=== PATIENT | male | born 1960 | race Caucasian/White ===

== ENCOUNTER 2018-03-27 16:37 | Emergency (ER) | payer MEDICARE, OTHER ==
[2018-03-27] MEDS: IBUPROFEN 800 MG TAB PO (17:58)
[2018-03-27] MEDS: DIPHTH/TET/ACEL PERTUSS (ADULT) 0.5 ML VIAL IM (17:59)
[2018-03-27] MEDS: LIDOCAINE 2%/EPI MPF (SDV) 20 ML VIAL INJ (18:26)
[2018-03-27] MEDS: STERILE WATER 1L IRRIG BTL IRR (18:27)
== END 2018-03-27 19:41 | disposition home or self-care (01) ==
LOC: FTE 16:37
DX: S01.112A Laceration without foreign body of left eyelid and periocular area, initial encounter (principal); I10 Essential (primary) hypertension; I50.9 Heart failure, unspecified; W23.0XXA Caught, crushed, jammed, or pinched between moving objects, initial encounter; Y92.9 Unspecified place or not applicable; Z23 Encounter for immunization; Z95.0 Presence of cardiac pacemaker; Z95.1 Presence of aortocoronary bypass graft
CPT/HCPCS: 12011; 70450; 90471; 90715; 99284-25

== ENCOUNTER 2018-04-05 08:55 | Emergency (ER) | payer MEDICARE, OTHER | END 2018-04-05 09:55 | disposition home or self-care (01) | LOC: FTE 08:55 | DX: Z48.02 Encounter for removal of sutures (principal); I10 Essential (primary) hypertension; I50.9 Heart failure, unspecified; Z79.01 Long term (current) use of anticoagulants; Z95.0 Presence of cardiac pacemaker; Z95.1 Presence of aortocoronary bypass graft ==

== ENCOUNTER → 2018-04-14 | Outpatient (CLI) | payer MEDICARE, OTHER ==
[~2018-04-14] MED LIST: BARIUM SULF 2% 450 ML BTL (BERRY SMOOTHIE) PO
== END | disposition home or self-care (01) ==
LOC: C/S 07:43
DX: R14.0 Abdominal distension (gaseous) (principal)
CPT/HCPCS: 74176

== ENCOUNTER 2018-08-30 19:57 | Inpatient (IN) | payer MEDICARE, OTHER ==
[2018-08-30] MEDS: ONDANSETRON 4 MG INJ IV (21:30)
[2018-08-30] MEDS: ASPIRIN 325 MG TAB PO (21:30)
[2018-08-30] MEDS: morphine 4 MG/ML VIAL IV (21:31)
[2018-08-30 21:46] LABS: ADD MAN DIFF? NO
[2018-08-30 21:48] LABS: WHITE BLOOD COUNT 6.9 10^3/ul (4.8-10.8)
[2018-08-30 21:48] LABS: BASOPHIL # 0.1 10^3/ul (0.0-0.1); BASOPHILS % 0.9 % (0.0-2.0); EOSINOPHILS # 0.2 10^3/ul (0.0-0.5); EOSINOPHILS % 2.9 % (0.0-7.0); HEMATOCRIT 42.6 % (42.0-52.0); HEMOGLOBIN 14.2 g/dl (14.0-18.0); LYMPHOCYTES # 1.6 10^3/ul (0.8-2.9); LYMPHOCYTES % 22.7 % (15.0-51.0); MEAN CORPUSCULAR HEMOGLOBIN 31.3 pg (29.0-33.0); MEAN CORPUSCULAR HGB CONC 33.3 g/dl (32.0-37.0); MEAN PLATELET VOLUME 9.8 fl (7.4-10.4); MONOCYTE # 0.6 10^3/ul (0.3-0.9); MONOCYTES % 8.5 % (0.0-11.0); NEUTROPHIL # 4.4 10^3/ul (1.6-7.5); PLATELET COUNT 185 10^3/UL (140-415); RED BLOOD COUNT 4.53 10^6/ul (4.70-6.10); RED CELL DISTRIBUTION WIDTH 13.8 % (11.5-14.5)
[2018-08-30 22:04] LABS: INR 2.19; PROTIME 24.9 Sec (11.9-14.9); PT RATIO 1.9
[2018-08-30 22:05] LABS: PARTIAL THROMBOPLASTIN TIME 39.8 Sec (23.0-35.0)
[2018-08-30 22:06] LABS: ALANINE AMINOTRANSFERASE 15 IU/L (13-69); ALBUMIN 4.4 g/dl (3.3-4.9); ALBUMIN/GLOBULIN RATIO 1.22; ALKALINE PHOSPHATASE 87 IU/L (42-121); ANION GAP 11 (5-13); ASPARTATE AMINO TRANSFERASE 29 IU/L (15-46); BILIRUBIN,INDIRECT 0.5 mg/dl (0-1.1); BILIRUBIN,TOTAL 0.5 mg/dl (0.2-1.3); BLOOD UREA NITROGEN 18 mg/dl (7-20); CALCIUM 8.8 mg/dl (8.4-10.2); CARBON DIOXIDE 23 mmol/L (21-31); CHLORIDE 108 mmol/L (97-110); CREATINE KINASE 68 IU/L (23-200); CREATININE 0.75 mg/dl (0.61-1.24); Estimated GFR > 60 mL/min (>60); GLUCOSE 104 mg/dl (70-220); POTASSIUM 4.3 mmol/L (3.5-5.1); SODIUM 142 mmol/L (135-144)
[2018-08-30 22:18] LABS: B-TYPE NATRIURETIC PEPTIDE 454 PG/ML (0-125); CK INDEX 0.8; CK-MB 0.56 ng/ml (0.0-2.4); TROPONIN-I 0.021 ng/ml (0.000-0.120)
[2018-08-30] MEDS ORDERED: ACETAMINOPHEN 325 MG TAB PO (23:00)
[2018-08-30] MEDS ORDERED: ONDANSETRON 4 MG INJ IV (23:00)
[2018-08-31] MEDS ORDERED: ONDANSETRON 4 MG INJ IV (01:30)
[2018-08-31 04:01] LABS: ADD MAN DIFF? NO
[2018-08-31 04:03] LABS: BASOPHILS % 0.7 % (0.0-2.0); EOSINOPHILS # 0.2 10^3/ul (0.0-0.5); EOSINOPHILS % 3.8 % (0.0-7.0); HEMATOCRIT 41.2 % (42.0-52.0); HEMOGLOBIN 13.5 g/dl (14.0-18.0); LYMPHOCYTES # 1.8 10^3/ul (0.8-2.9); LYMPHOCYTES % 29.3 % (15.0-51.0); MEAN CORPUSCULAR HEMOGLOBIN 31.2 pg (29.0-33.0); MEAN CORPUSCULAR HGB CONC 32.8 g/dl (32.0-37.0); MEAN CORPUSCULAR VOLUME 95.2 fl (82.0-101.0); MEAN PLATELET VOLUME 9.6 fl (7.4-10.4); MONOCYTE # 0.6 10^3/ul (0.3-0.9); NEUTROPHIL # 3.3 10^3/ul (1.6-7.5); PLATELET COUNT 164 10^3/UL (140-415); RED BLOOD COUNT 4.33 10^6/ul (4.70-6.10); RED CELL DISTRIBUTION WIDTH 13.8 % (11.5-14.5)
[2018-08-31 04:20] LABS: ANION GAP 8 (5-13); BLOOD UREA NITROGEN 18 mg/dl (7-20); CALCIUM 8.6 mg/dl (8.4-10.2); CARBON DIOXIDE 29 mmol/L (21-31); CHLORIDE 106 mmol/L (97-110); CHOLESTEROL 233 mg/dl (100-200); CREATININE 0.87 mg/dl (0.61-1.24); Estimated GFR > 60 mL/min (>60); GLUCOSE 89 mg/dl (70-220); HDL CHOLESTEROL 29 mg/dl (28-71); LDL CHOLESTEROL,CALCULATED 166 mg/dl; POTASSIUM 4.8 mmol/L (3.5-5.1); SODIUM 143 mmol/L (135-144); TRIGLYCERIDES 190 mg/dl (0-149)
[2018-08-31 04:32] LABS: TROPONIN-I 0.021 ng/ml (0.000-0.120)
[2018-08-31 11:18] LABS: TROPONIN-I 0.016 ng/ml (0.000-0.120)
[2018-08-31] MEDS ORDERED: ZOLPIDEM 5 MG TAB PO (13:00)
[2018-08-31] MEDS ORDERED: MECLIZINE 25 MG TAB PO (13:00)
[2018-08-31] MEDS ORDERED: WARFARIN 3 MG TAB PO (13:00)
[2018-08-31] MEDS: FUROSEMIDE 40 MG INJ IV (14:40)
[2018-08-31 16:24] LABS: TROPONIN-I 0.015 ng/ml (0.000-0.120)
[2018-08-31] MEDS: WARFARIN 2 MG TAB PO (17:18)
[2018-08-31] MEDS: FUROSEMIDE 20 MG INJ IV (17:20)
[2018-08-31] MEDS: LEVALBUTEROL (NEB) 0.63 MG/3 ML AMP HHN (17:25)
[2018-08-31] MEDS: SACUBITRIL/VALSARTAN (24mg-26mg) TABLET PO (21:17)
[2018-08-31] MEDS: GUAIFENESIN/DM (SR) TAB PO (21:18)
[2018-08-31] MEDS: ATORVASTATIN 40 MG TAB PO (21:18)
[2018-08-31] MEDS: ZOLPIDEM 5 MG TAB PO (21:18)
[2018-08-31] MEDS: MONTELUKAST 10 MG TAB PO (21:18)
[2018-09-01] MEDS: FUROSEMIDE 20 MG INJ IV (06:57)
[2018-09-01 07:12] LABS: INR 2.02; PROTIME 23.3 Sec (11.9-14.9); PT RATIO 1.8
[2018-09-01] MEDS: GUAIFENESIN/DM (SR) TAB PO ×2 (08:14→20:27)
[2018-09-01] MEDS: SACUBITRIL/VALSARTAN (24mg-26mg) TABLET PO (08:14)
[2018-09-01] MEDS: SPIRONOLACTONE 25 MG TAB PO (08:15)
[2018-09-01] MEDS: LEVALBUTEROL (NEB) 0.63 MG/3 ML AMP HHN ×3 (08:17→16:34)
[2018-09-01] MEDS ORDERED: AMIODARONE 200 MG TAB PO (09:00)
[2018-09-01] MEDS ORDERED: WARFARIN 1 MG TAB PO (09:00)
[2018-09-01] MEDS ORDERED: ALPRAZOLAM 1 MG TAB PO (11:00)
[2018-09-01] MEDS: ALPRAZOLAM 1 MG TAB PO (13:02)
[2018-09-01] MEDS: FUROSEMIDE 40 MG INJ IV (14:24)
[2018-09-01] MEDS: WARFARIN 3 MG TAB PO (14:24)
[2018-09-01] MEDS: MONTELUKAST 10 MG TAB PO (20:27)
[2018-09-01] MEDS: ATORVASTATIN 40 MG TAB PO (20:27)
[2018-09-01] MEDS: SACUBITRIL/VALSARTAN (49mg-51mg) TABLET PO (20:27)
[2018-09-01] MEDS: ZOLPIDEM 5 MG TAB PO (20:27)
[2018-09-01] MEDS: morphine 2 MG INJ IV (20:38)
[2018-09-02] MEDS: GUAIFENESIN/DM (SR) TAB PO ×2 (08:23→20:28)
[2018-09-02] MEDS: SPIRONOLACTONE 25 MG TAB PO (08:24)
[2018-09-02] MEDS: SACUBITRIL/VALSARTAN (49mg-51mg) TABLET PO ×2 (08:24→20:28)
[2018-09-02] MEDS: FUROSEMIDE 20 MG INJ IV ×2 (08:25→17:31)
[2018-09-02 08:42] LABS: ADD MAN DIFF? NO
[2018-09-02 08:48] LABS: WHITE BLOOD COUNT 7.3 10^3/ul (4.8-10.8)
[2018-09-02 08:48] LABS: BASOPHIL # 0.1 10^3/ul (0.0-0.1); BASOPHILS % 0.7 % (0.0-2.0); EOSINOPHILS # 0.2 10^3/ul (0.0-0.5); EOSINOPHILS % 2.5 % (0.0-7.0); HEMATOCRIT 44.2 % (42.0-52.0); HEMOGLOBIN 14.9 g/dl (14.0-18.0); LYMPHOCYTES # 1.3 10^3/ul (0.8-2.9); LYMPHOCYTES % 18.3 % (15.0-51.0); MEAN CORPUSCULAR HEMOGLOBIN 31.2 pg (29.0-33.0); MEAN CORPUSCULAR HGB CONC 33.7 g/dl (32.0-37.0); MEAN CORPUSCULAR VOLUME 92.5 fl (82.0-101.0); MEAN PLATELET VOLUME 10.5 fl (7.4-10.4); MONOCYTE # 0.6 10^3/ul (0.3-0.9); MONOCYTES % 7.7 % (0.0-11.0); NEUTROPHIL # 5.1 10^3/ul (1.6-7.5); NEUTROPHILS % 69.6 % (39.0-77.0); PLATELET COUNT 206 10^3/UL (140-415); RED BLOOD COUNT 4.78 10^6/ul (4.70-6.10); RED CELL DISTRIBUTION WIDTH 13.7 % (11.5-14.5)
[2018-09-02] MEDS: LEVALBUTEROL (NEB) 0.63 MG/3 ML AMP HHN ×3 (08:51→17:25)
[2018-09-02 09:16] LABS: MAGNESIUM 2.2 mg/dl (1.7-2.5)
[2018-09-02 09:26] LABS: ANION GAP 13 (5-13); BLOOD UREA NITROGEN 27 mg/dl (7-20); CARBON DIOXIDE 27 mmol/L (21-31); CHLORIDE 100 mmol/L (97-110); CREATININE 0.74 mg/dl (0.61-1.24); Estimated GFR > 60 mL/min (>60); GLUCOSE 83 mg/dl (70-220); SODIUM 140 mmol/L (135-144)
[2018-09-02] MEDS: morphine 2 MG INJ IV (13:00)
[2018-09-02] MEDS: WARFARIN 5 MG TAB PO (17:30)
[2018-09-02] MEDS: MONTELUKAST 10 MG TAB PO (20:28)
[2018-09-02] MEDS: ATORVASTATIN 40 MG TAB PO (20:28)
[2018-09-02] MEDS: ZOLPIDEM 5 MG TAB PO (20:29)
[2018-09-03] MEDS: FUROSEMIDE 20 MG INJ IV (05:52)
[2018-09-03 07:35] LABS: PROTIME 26.8 Sec (11.9-14.9); PT RATIO 2.1
[2018-09-03 07:42] LABS: ANION GAP 11 (5-13); BLOOD UREA NITROGEN 26 mg/dl (7-20); CALCIUM 9.1 mg/dl (8.4-10.2); CARBON DIOXIDE 27 mmol/L (21-31); CHLORIDE 99 mmol/L (97-110); CREATININE 0.77 mg/dl (0.61-1.24); Estimated GFR > 60 mL/min (>60); GLUCOSE 97 mg/dl (70-220); MAGNESIUM 2.2 mg/dl (1.7-2.5); POTASSIUM 3.9 mmol/L (3.5-5.1); SODIUM 137 mmol/L (135-144)
[2018-09-03] MEDS: LEVALBUTEROL (NEB) 0.63 MG/3 ML AMP HHN ×3 (08:13→16:47)
[2018-09-03] MEDS: GUAIFENESIN/DM (SR) TAB PO ×2 (08:44→21:43)
[2018-09-03] MEDS: SACUBITRIL/VALSARTAN (49mg-51mg) TABLET PO ×2 (08:44→21:44)
[2018-09-03] MEDS: SPIRONOLACTONE 25 MG TAB PO (08:44)
[2018-09-03] MEDS: FUROSEMIDE 40 MG TAB PO (10:58)
[2018-09-03] MEDS: ALPRAZOLAM 1 MG TAB PO (11:04)
[2018-09-03] MEDS: WARFARIN 5 MG TAB PO (17:38)
[2018-09-03] MEDS: MONTELUKAST 10 MG TAB PO (21:43)
[2018-09-03] MEDS: ATORVASTATIN 40 MG TAB PO (21:43)
[2018-09-03] MEDS: ZOLPIDEM 5 MG TAB PO (21:49)
[2018-09-04 06:34] LABS: INR 2.58; PROTIME 28.4 Sec (11.9-14.9); PT RATIO 2.2
[2018-09-04] MEDS: LEVALBUTEROL (NEB) 0.63 MG/3 ML AMP HHN ×3 (08:40→16:13)
[2018-09-04] MEDS: SPIRONOLACTONE 25 MG TAB PO (09:21)
[2018-09-04] MEDS: SACUBITRIL/VALSARTAN (49mg-51mg) TABLET PO ×2 (09:21→22:07)
[2018-09-04] MEDS: GUAIFENESIN/DM (SR) TAB PO ×2 (09:21→22:07)
[2018-09-04] MEDS: FUROSEMIDE 40 MG TAB PO (09:22)
[2018-09-04] MEDS ORDERED: SPIRONOLACTONE 25 MG TAB PO (15:00)
[2018-09-04] MEDS: WARFARIN 5 MG TAB PO (19:10)
[2018-09-04] MEDS: ALPRAZOLAM 1 MG TAB PO (19:13)
[2018-09-04] MEDS: ATORVASTATIN 40 MG TAB PO (22:07)
[2018-09-04] MEDS: ZOLPIDEM 5 MG TAB PO (22:07)
[2018-09-04] MEDS: MONTELUKAST 10 MG TAB PO (22:07)
[2018-09-05 06:06] LABS: ADD MAN DIFF? NO
[2018-09-05 06:14] LABS: BASOPHIL # 0.1 10^3/ul (0.0-0.1); BASOPHILS % 0.8 % (0.0-2.0); EOSINOPHILS # 0.2 10^3/ul (0.0-0.5); EOSINOPHILS % 2.7 % (0.0-7.0); HEMATOCRIT 43.1 % (42.0-52.0); HEMOGLOBIN 14.6 g/dl (14.0-18.0); LYMPHOCYTES # 1.6 10^3/ul (0.8-2.9); LYMPHOCYTES % 22.2 % (15.0-51.0); MEAN CORPUSCULAR HEMOGLOBIN 31.6 pg (29.0-33.0); MEAN CORPUSCULAR HGB CONC 33.9 g/dl (32.0-37.0); MEAN CORPUSCULAR VOLUME 93.3 fl (82.0-101.0); MEAN PLATELET VOLUME 10.1 fl (7.4-10.4); MONOCYTE # 0.6 10^3/ul (0.3-0.9); MONOCYTES % 7.9 % (0.0-11.0); NEUTROPHIL # 4.7 10^3/ul (1.6-7.5); NEUTROPHILS % 64.9 % (39.0-77.0); PLATELET COUNT 185 10^3/UL (140-415); RED BLOOD COUNT 4.62 10^6/ul (4.70-6.10); RED CELL DISTRIBUTION WIDTH 13.6 % (11.5-14.5)
[2018-09-05 06:14] LABS: WHITE BLOOD COUNT 7.3 10^3/ul (4.8-10.8)
[2018-09-05 06:51] LABS: INR 2.57; PROTIME 28.3 Sec (11.9-14.9); PT RATIO 2.2
[2018-09-05 06:58] LABS: ANION GAP 9 (5-13); BLOOD UREA NITROGEN 19 mg/dl (7-20); CALCIUM 8.8 mg/dl (8.4-10.2); CARBON DIOXIDE 29 mmol/L (21-31); CHLORIDE 102 mmol/L (97-110); CREATININE 0.83 mg/dl (0.61-1.24); Estimated GFR > 60 mL/min (>60); GLUCOSE 86 mg/dl (70-220); POTASSIUM 3.8 mmol/L (3.5-5.1); SODIUM 140 mmol/L (135-144)
[2018-09-05] MEDS: FUROSEMIDE 40 MG TAB PO (08:32)
[2018-09-05] MEDS: SPIRONOLACTONE 25 MG TAB PO (08:32)
[2018-09-05] MEDS: GUAIFENESIN/DM (SR) TAB PO ×2 (08:32→20:24)
[2018-09-05] MEDS: SACUBITRIL/VALSARTAN (49mg-51mg) TABLET PO ×2 (08:33→20:25)
[2018-09-05] MEDS: LEVALBUTEROL (NEB) 0.63 MG/3 ML AMP HHN ×3 (08:47→17:11)
[2018-09-05] MEDS: WARFARIN 5 MG TAB PO (16:33)
[2018-09-05] MEDS: FUROSEMIDE 20 MG INJ IV (16:33)
[2018-09-05] MEDS: ATORVASTATIN 40 MG TAB PO (20:24)
[2018-09-05] MEDS: MONTELUKAST 10 MG TAB PO (20:24)
[2018-09-05] MEDS: ZOLPIDEM 5 MG TAB PO (20:25)
[2018-09-06 07:02] LABS: INR 2.75; PROTIME 29.9 Sec (11.9-14.9); PT RATIO 2.3
[2018-09-06 07:17] LABS: ANION GAP 10 (5-13); BLOOD UREA NITROGEN 21 mg/dl (7-20); CALCIUM 8.8 mg/dl (8.4-10.2); CARBON DIOXIDE 27 mmol/L (21-31); CHLORIDE 104 mmol/L (97-110); CREATININE 0.71 mg/dl (0.61-1.24); Estimated GFR > 60 mL/min (>60); GLUCOSE 90 mg/dl (70-220); POTASSIUM 3.9 mmol/L (3.5-5.1); SODIUM 141 mmol/L (135-144)
[2018-09-06 07:40] LABS: MAGNESIUM 1.9 mg/dl (1.7-2.5)
[2018-09-06] MEDS: GUAIFENESIN/DM (SR) TAB PO (08:25)
[2018-09-06] MEDS: SPIRONOLACTONE 25 MG TAB PO (08:25)
[2018-09-06] MEDS: FUROSEMIDE 40 MG TAB PO (08:25)
[2018-09-06] MEDS: SACUBITRIL/VALSARTAN (49mg-51mg) TABLET PO (08:25)
[2018-09-06] MEDS: LEVALBUTEROL (NEB) 0.63 MG/3 ML AMP HHN ×3 (08:51→17:00)
[2018-09-06] MEDS: WARFARIN 5 MG TAB PO (16:55)
== END 2018-09-06 18:40 | disposition home or self-care (01) | DRG 293 ==
LOC: TEL 22:48 → E/R 19:57
DX: I11.0 Hypertensive heart disease with heart failure (principal); I42.9 Cardiomyopathy, unspecified; Z95.1 Presence of aortocoronary bypass graft; Z95.2 Presence of prosthetic heart valve; Z79.01 Long term (current) use of anticoagulants; I50.23 Acute on chronic systolic (congestive) heart failure; F41.9 Anxiety disorder, unspecified; I48.2 Chronic atrial fibrillation; I25.10 Atherosclerotic heart disease of native coronary artery without angina pectoris; R00.1 Bradycardia, unspecified; I25.2 Old myocardial infarction; Z95.0 Presence of cardiac pacemaker
CPT/HCPCS: 36415; 71045; 80048; 80053; 80061; 82550; 82553; 83735; 83880; 84484; 85025; 85610; 85730; 93005; 94640; 94664; 96374; 96375; 99285-25; G0378

== ENCOUNTER 2018-10-07 18:30 | Emergency (ER) | payer MEDICARE, OTHER ==
[2018-10-07 22:22] LABS: ADD MAN DIFF? NO
[2018-10-07 22:24] LABS: BASOPHILS % 0.6 % (0.0-2.0); EOSINOPHILS # 0.2 10^3/ul (0.0-0.5); EOSINOPHILS % 3.2 % (0.0-7.0); LYMPHOCYTES # 1.8 10^3/ul (0.8-2.9); LYMPHOCYTES % 24.9 % (15.0-51.0); MEAN CORPUSCULAR HEMOGLOBIN 31.1 pg (29.0-33.0); MEAN CORPUSCULAR HGB CONC 33.3 g/dl (32.0-37.0); MEAN CORPUSCULAR VOLUME 93.3 fl (82.0-101.0); MEAN PLATELET VOLUME 9.7 fl (7.4-10.4); MONOCYTE # 0.6 10^3/ul (0.3-0.9); MONOCYTES % 8.4 % (0.0-11.0); NEUTROPHIL # 4.5 10^3/ul (1.6-7.5); NEUTROPHILS % 61.9 % (39.0-77.0); PLATELET COUNT 192 10^3/UL (140-415); RED CELL DISTRIBUTION WIDTH 13.5 % (11.5-14.5)
[2018-10-07 22:24] LABS: WHITE BLOOD COUNT 7.2 10^3/ul (4.8-10.8)
[2018-10-07 22:43] LABS: ANION GAP 8 (5-13); BLOOD UREA NITROGEN 15 mg/dl (7-20); CALCIUM 9.4 mg/dl (8.4-10.2); CARBON DIOXIDE 26 mmol/L (21-31); CHLORIDE 106 mmol/L (97-110); Estimated GFR > 60 mL/min (>60); GLUCOSE 103 mg/dl (70-220); POTASSIUM 3.8 mmol/L (3.5-5.1); SODIUM 140 mmol/L (135-144)
[2018-10-07 22:54] LABS: TROPONIN-I 0.019 ng/ml (0.000-0.120)
== END 2018-10-08 00:57 | disposition home or self-care (01) ==
LOC: E/R 10-08 00:57
DX: J18.1 Lobar pneumonia, unspecified organism (principal); F41.9 Anxiety disorder, unspecified; I11.0 Hypertensive heart disease with heart failure; I50.9 Heart failure, unspecified; I25.2 Old myocardial infarction; Z95.0 Presence of cardiac pacemaker
CPT/HCPCS: 36415; 71045; 80048; 84484; 85025; 93005; 99285-25

== ENCOUNTER 2018-12-11 10:30 | Emergency (ER) | payer MEDICARE, OTHER ==
[2018-12-11 12:30] LABS: ADD MAN DIFF? NO
[2018-12-11 12:33] LABS: WHITE BLOOD COUNT 8.7 10^3/ul (4.8-10.8)
[2018-12-11 12:33] LABS: BASOPHILS % 0.3 % (0.0-2.0); EOSINOPHILS # 0.1 10^3/ul (0.0-0.5); EOSINOPHILS % 1.5 % (0.0-7.0); HEMATOCRIT 42.2 % (42.0-52.0); HEMOGLOBIN 13.9 g/dl (14.0-18.0); LYMPHOCYTES # 0.7 10^3/ul (0.8-2.9); LYMPHOCYTES % 7.6 % (15.0-51.0); MEAN CORPUSCULAR HEMOGLOBIN 31.4 pg (29.0-33.0); MEAN CORPUSCULAR HGB CONC 32.9 g/dl (32.0-37.0); MEAN CORPUSCULAR VOLUME 95.5 fl (82.0-101.0); MEAN PLATELET VOLUME 9.3 fl (7.4-10.4); MONOCYTE # 0.5 10^3/ul (0.3-0.9); MONOCYTES % 6.2 % (0.0-11.0); NEUTROPHIL # 7.3 10^3/ul (1.6-7.5); NEUTROPHILS % 83.9 % (39.0-77.0); PLATELET COUNT 147 10^3/UL (140-415); RED BLOOD COUNT 4.42 10^6/ul (4.70-6.10); RED CELL DISTRIBUTION WIDTH 13.7 % (11.5-14.5)
[2018-12-11 12:55] LABS: ANION GAP 8 (5-13); BLOOD UREA NITROGEN 11 mg/dl (7-20); CALCIUM 9.3 mg/dl (8.4-10.2); CARBON DIOXIDE 29 mmol/L (21-31); CHLORIDE 105 mmol/L (97-110); CREATININE 0.78 mg/dl (0.61-1.24); Estimated GFR > 60 mL/min (>60); GLUCOSE 101 mg/dl (70-220); POTASSIUM 4.2 mmol/L (3.5-5.1); SODIUM 142 mmol/L (135-144)
[2018-12-11 13:07] LABS: TROPONIN-I < 0.012 ng/ml (0.000-0.120)
[2018-12-11 13:57] LABS: B-TYPE NATRIURETIC PEPTIDE 825 PG/ML (0-125)
== END 2018-12-11 13:46 | disposition home or self-care (01) ==
LOC: FTE 10:30
DX: J40 Bronchitis, not specified as acute or chronic (principal); I11.0 Hypertensive heart disease with heart failure; I50.9 Heart failure, unspecified; I25.2 Old myocardial infarction; Z95.0 Presence of cardiac pacemaker
CPT/HCPCS: 36415; 71045; 80048; 83880; 84484; 85025; 93005; 99285-25